=== PATIENT | male | born 2000 | race African-American/Black ===

== ENCOUNTER 2020-09-05 11:26 | Emergency (ER) | payer OTHER ==
[~2020-09-05] VITALS: Ht 185.4 cm; Wt 90.9 kg
[2020-09-05] MEDS ORDERED: UNK ABX PO (11:36)
[2020-09-05] MEDS ORDERED: HYDROCODONE/ACETAMINOPHEN 5-325 MG TABLET PO ONE (12:45)
[2020-09-05 13:07] VITALS: BP 135/66
== END 2020-09-05 13:37 | disposition home or self-care (01) ==
LOC: EMS 11:34
DX: L05.01 Pilonidal cyst with abscess (principal); F17.210 Nicotine dependence, cigarettes, uncomplicated
CPT/HCPCS: 99283